=== PATIENT | female | born 1970 | race Caucasian/White ===

== ENCOUNTER 2017-01-06 08:51 | Day surgery (SDC) | payer OTHER ==
[~2017-01-06] VITALS: Ht 158.8 cm; Wt 77.4 kg
[2017-01-06] VITALS (14 sets, daily range): BP systolic 111–166; BP diastolic 8–108; PULSE 79–94; RESP 7–19; O2SAT 92–99
[2017-01-06] MEDS: Lactated Ringer's 1,000 ML IV SCH ×3 (05:00→10:28)
[~2017-01-06 08:51] MED LIST: ADV250INH IH; CALCIUM/MAG/VIT D PO; CeFAZolin Inj 2 GM in IV Premix 1 EACH IV ONE; DIPH25CA6 PO; FLUT9.9S NS; IRON 65 MG PO; LEVO25TA5 PO; SPIR25TA3 PO
[2017-01-06] MEDS ORDERED: Rocuronium 10 mg/mL 5 mL Inj ONE (08:52)
[2017-01-06] MEDS ORDERED: Propofol 10,000 mCg/mL 20 mL Inj ONE (08:52)
[2017-01-06] MEDS ORDERED: Ondansetron 2 mg/mL 2 mL Inj ONE (08:52)
[2017-01-06] MEDS ORDERED: fentaNYL-PF 50 mCg/mL 2 mL Inj ONE (08:52)
[2017-01-06] MEDS ORDERED: Neostigmine 1 mg/mL 10 mL Inj ONE (08:52)
[2017-01-06] MEDS ORDERED: Ketamine 10 mg/mL 20 mL Inj ONE (08:52)
[2017-01-06] MEDS ORDERED: Dexamethasone 4 mg/mL Inj ONE (08:52)
[2017-01-06] MEDS ORDERED: Glycopyrrolate 0.2 MG/ML 1mL Inj ONE (08:52)
[2017-01-06] MEDS ORDERED: Lactated Ringer's 500 ML IV PRN (10:21)
[2017-01-06] MEDS ORDERED: Lactated Ringer's 1,000 ML IV SCH (10:21)
--- NOTE | 2017-01-06 10:21 | PCM.HPANE ---
Patient Data Surgeon Admitting Provider: Attending Provider:Barrington Jackson MD Primary Care Physician:Maryanne Stovall Other Provider:Gómez Tripathi Anesthesia Reason for Visit Left Breast Cancer, Right Nipple Bloody Discharge Ht/WT & BMI Height (Feet): 5 Height (Inches): 2.50 Weight (Kilograms): 77.4 Body Mass Index 30.00 Allergies Coded Allergies: Iodinated Contrast Media - Oral and (Verified Allergy, Severe, Rash, Itching,, 12/19/16) Had hives after CT scan, was told to pretreat in future. Past Anesthesia History Anesthesia History: Denies:: Abnormal Airway, Anesthesia Reactions, Difficult Intubation, Fam Anesthesia Reaction, Malignant Hyperthermia Diabetes History Hx Diabetes?: No MRSA MRSA: No Medications Hypertension Medication: No Home Meds Incl Beta Eva: No Reported Medications [Iron 65 Mg] No Conflict Check65 Mg PO DAILY 12/31/16 [Calcium/Mag/Vit D] No Conflict Check1 Tablet PO DAILY 12/31/16 Levothyroxine 25 Mcg [id number] Mcg PO DAILY Ref 0 12/19/16 Fluticasone/Salmeterol (Advair 250-50 Diskus)60 Puff/Inh Disk2 Puff IH BID Ref 0 12/08/16 Spironolactone 25 Mg Onywyl05 Mg PO BID Ref 0 12/08/16 Fluticasone Propionate (Flonase Allergy Relief)50 Mcg/Actuation [place].susp1 [place] EACH NOSTRIL DAILY 12/08/16 diphenhydrAMINE HCl (Benadryl)25 Mg [id number] Mg PO Q4-6H PRN PRN Ref 0 12/08/16 History History of ENT Problems?: Yes HEENT History: Denies:: Abnormal Airway Cataracts Difficult Intubation Dysphagia Glaucoma Hearing Problem Sinus Problem TMJ Denture Type: None Teeth Condition: Missing Teeth Other HEENT Pertinent History: hx missing teeth, Hx of Heart Problems?: Yes Cardiovascular History: Positive for:: Hypertension Denies:: AICD Abdominal Aortic Aneurism Cardiac Surgery Coronary Artery Disease Edema Heart Murmur Irregular Heartbeat Pacemaker Hx of Respiratory Problem?: Yes Respiratory History: Positive for:: Asthma (allergy or exercise induced - rarely) Use of Inhalers / NEBS Denies:: COPD Emphysema Oxygen Administration Pneumonia Tuberculosis Use of C-PAP Machine Hx Neurologic Problems?: Yes Neurological History: Positive for:: Headaches (only with gluten) Denies:: CVA Dizziness Multiple Sclerosis Parkinson's Disease Seizures TIA Hx of GI Problems?: No Hx of Problems?: No Genitourinary History: Denies:: Kidney Stones Urinary Tract Infection Female Hx: Positive for:: Problems with Breasts? (left breast ca current admission problem) Denies:: Currently Skin History: Denies:: History Skin Disorders? Pressure Ulcers Hx Musculoskeletal Problems?: No Musculoskeletal History: Denies:: Back Injury Fibromyalgia Joint Replacement Musculoskeletal Trauma Myasthenia Gravis Osteoarthritis Rheumatoid Arthritis Systemic Lupus Hx of Psycho/Social Problems?: No Hx Surgeries?: Yes (B/L BREAST BX, oral surgery) Hx Any Other Health Problems?: Yes Other History: Positive for:: Cancer (left breast ) Thyroid Disease (left thyroid nodule) Denies:: Endocrine Disease Hospitalization History Blood Transfusions: Positive for:: Accept Blood Products? Denies:: Blood Transfusions Hx Diabetes: No Hx Alcohol Use: YesAlcoholic Drinks Per Day: once weeklyHx Substance Use: No Smoking Status: Never Smoker Have You Smoked inLast 12 mo: No Stop/Bang Treated for Sleep Apnea?: No Do You Have a CPAP Machine?: No S-Snoring: Do You Snore Loudly: No T-Tired: feel tired, fatigued: No O-Obsered: Observed not breath: No P-Blood Pressure: treated: Yes B- Body Mass Index > 35 kg/m2: No A- Age over 50: No N- Neck Large Circumference: No G- Gender Male: No JUAN C Total Score: 1 JUAN C Risk Assessment: Low Risk, <3 Yes Risk Assessment Category Category 1A: Patient has history of documented sleep apnea, and HAS NOT received any narcotic, sedative or anesthesia administration during this stay. Category 1B: Patient has history of documented sleep apnea, and HAS received any narcotic , sedative or anesthesia administration during this stay Category 2: Patient has SUSPECTED Obstructive Sleep Apnea, and HAS received any narcotic , sedative or anesthesia administration during this stay. Category 3: Patient has SUSPECTED Obstructive Sleep Apnea and HAS NOT received narcotic, sedative or anesthesia administration during this stay. Category 4: Outpatient in Procedural Areas with known sleep apnea or who screen positive for High Risk via the STOP/BANG questionnaire. Exam Exam Vital Signs Vital Signs Date Time Temp Pulse Resp B/P Pulse Ox O2 Delivery O2 Flow Rate FiO2 01/06/17 09:30 36.2 88 18 166/108 99 Room Air General Appearance: Alert, Oriented X3, Cooperative, No Acute Distress HEENT/AIRWAY: MP 2 Lungs: Clear to Auscultation, Normal Air Movement Heart: Exam Unremarkable, Regular Rate/Rhythm, No Murmurs/Rubs/Gallops Meds/Labs/Diagnostics Admission Meds Current Medications Lactated Ringer's (Lr) 1,000 ml @ 120 mls/hr Q8H20M IV Last administered on t 09:04; Start 01/06/17 at 05:00; Stop 01/06/17 at 13:19 Plan Impression Patient chart reviewed, patient interviewed and anesthestic plan with risks, benefits, and alternatives discussed, and informed consent obtained. ASA Physical Status: ASA2 Mod Systemic Disease Anesthetic Plan: GA Bene/Risks/Altern/Consents: Yes HP Complete Prior to Induction: Yes Remy Pacheco MD Jan 06, 2017 10:21
[2017-01-06] MEDS ORDERED: Dexamethasone 4 mg/mL Inj IVPUSH PRN (10:25)
[2017-01-06] MEDS ORDERED: EPHEDrine Sulfate 50 mg/mL Inj IVPUSH PRN (10:25)
[2017-01-06] MEDS ORDERED: Ondansetron 2 mg/mL 2 mL Inj IVPUSH PRN ×2 (10:25→14:45)
[2017-01-06] MEDS ORDERED: Phenylephrine 10,000 mCg/mL Inj IVPUSH PRN (10:25)
[2017-01-06] MEDS ORDERED: fentaNYL-PF 50 mCg/mL 2 mL Inj IVPUSH PRN (10:25)
[2017-01-06] MEDS ORDERED: MetoCLOpramide 5 mg/mL 2 mL Inj IVPUSH PRN ×2 (10:25→14:45)
[2017-01-06] MEDS ORDERED: Bupivacaine-MPF 0.5% W/EPI 30 mL Inj INFILTRATE ONE (11:10)
[2017-01-06] MEDS ORDERED: Lactated Ringer's 1,000 ML IV ONE (11:46)
[2017-01-06] MEDS ORDERED: HepLOK Flush 100 unit/mL 5 mL Inj IVFLUSH ONE (14:20)
[2017-01-06] MEDS ORDERED: Morphine PCA 1 mg/mL 30 mL Inj IV PRN (14:45)
[2017-01-06] MEDS ORDERED: Acetaminophen IV 1,000 MG in IV Premix 1 EACH IV PRN (14:45)
--- NOTE | 2017-01-06 14:55 | PCM.SURGOP ---
Surgical Operative Report Date of Service: Jan 06, 2017 Pre Operative Diagnosis Left breast cancer, bloody right nipple discharge Post Operative Diagnosis Same Procedure: Bilateral skin sparing mastectomy, left axillary lymph node dissection with reverse axillary lymphatic mapping, tunneled left subclavian central venous catheter with power port, intraoperative fluoroscopy with interpretation Surgeon and Salesforce Specialist: Surgeon: Barrington Jackson MD Assistants: Erma Daigle PA-C Indication for Procedure 46-year-old woman who was diagnosed with clinical T1 N1 left breast invasive ductal carcinoma, ER/ND positive, HER-2 negative, but who had originally presented with bloody right nipple discharge. Her right breast biopsy showed fibrocystic change, but the biopsy was thought to possibly be discordant with her radiographic findings. Because of the biologic subtype of her cancer, she was thought to not be a good candidate for neoadjuvant chemotherapy. After discussion of risks and benefits, she agreed to proceed with bilateral skin sparing mastectomy with left axillary lymph node dissection and reverse lymphatic mapping, Port-A-Cath placement. She plans to pursue delayed breast reconstruction after her adjuvant treatment. Findings: There were several abnormal left axillary lymph nodes by palpation. There were no visualized blue lymphatics. Procedure Details After smooth induction of general endotracheal anesthesia, she was placed in the supine position with both arms out, and was prepped and draped in wide sterile fashion. A procedural pause was performed according to the SCOAP checklist, and all were found to be in agreement. A Wood catheter was placed. An elliptical right breast circumareolar incision was made, oriented transversely. Skin flaps were raised superiorly and inferiorly. Circumferential dissection was carried out with electrocautery as the skin and subcutaneous tissue was elevated off the underlying breast capsule. Margins of dissection were the right clavicle, the midline, the right inframammary crease, and the right anterior axillary line. The right axillary tail was divided. The right breast was then elevated off the underlying chest wall, and pectoralis fascia was resected en bloc. The right breast was oriented with suture, and sent for permanent pathology. A single 19 [place] round SERENA drain was brought out through a separate incision laterally, and secured to the skin with a 2-0 nylon suture. At this point, a similar elliptical left breast circumareolar incision was made. It was slightly longer, in order to accommodate her prior needle biopsy sites into the lateral aspect of the incision. Skin flaps were raised superiorly and inferiorly. Circumferential dissection was carried out with electrocautery as the skin subcutaneous tissue was elevated off the underlying breast capsule. Margins of dissection were the left clavicle, the midline, the left inframammary crease, and the left anterior axillary line. Medial and lateral perforating vessels were controlled with medium hemoclips. The left breast was then elevated off the underlying chest wall, and pectoralis fascia was resected en bloc. The left breast was oriented with suture, and sent for permanent pathology. 1 mL of methylene blue was then injected into the left medial arm into the subdermal tissue for reverse lymphatic mapping of the left axilla. Left axillary lymph node dissection was then performed through the same incision. The left axillary vein was identified and skeletonized. There was a single venous branch into the axilla which was ligated with 3-0 silk suture and divided. The left lung thoracic and thoracodorsal nerves were identified and preserved. A complete level I and 2 lymph node dissection was performed. There were several abnormal lymph nodes by palpation. There were no visualized blue lymphatics during the dissection. All loose areolar node bearing tissue was swept out of the subpectoral space along with the eldon packet. Dissection was performed using the LigaSure device. Once eldon dissection was completed, the tissue is sent for permanent pathology, labeled as left axillary node dissection. On the left side, 2 separate SERENA drains were placed. A 19 round SERENA drain was placed into the mastectomy bed. A 15 round SERENA drain was placed into the left axilla. Both were secured to the skin with 2-0 nylon suture. Both skin incisions were then closed with interrupted deep dermal 3-0 Vicryl sutures, and running 4-0 Vicryl subcuticular suture. Dermabond was applied to both incisions as a dressing. She was then placed with the left arm tucked for Port-A-Cath placement, reprepped and draped separately. She was placed in Trendelenburg position. On the first pass, the left subclavian artery was punctured, but not dilated. The needle was withdrawn and pressure was held for several minutes. There was no hematoma. The left subclavian vein was accessed with a finder needle on the second pass, and the 0.035 inch wire was passed into the vena cava. It was confirmed with fluoroscopy. A subcutaneous pocket was created on the left upper chest wall using electrocautery, which connected to the mastectomy bed. The port reservoir was secured to the fascia with interrupted 3-0 Vicryl sutures. The catheter was connected to the tunneler, and tunneled under the subcutaneous tissue to the venipuncture site. The introducer sheath and dilator was passed over the wire under fluoroscopic guidance. The catheter was then passed through the tear-away sheath into the vena cava. The sheath was removed. The catheter was then pulled back under fluoroscopic guidance until the tip was positioned at the cavoatrial junction. The catheter was cut to size , and connected to the port reservoir. The port was accessed using a Schmitt needle, which aspirated and flushed easily. The port was then flushed with the final heparin flush, consisting of 100 units per mL, a total of 4 mL. A final fluoroscopic image confirmed that the port was in good position with no kinks, and there was no evidence of pneumothorax. The incision was closed with a running 4-0 Monocryl subcuticular stitch. Dermabond was applied to those incisions as a dressing. The Wood catheter was removed prior to emergence from anesthesia. At the end of the case all needle and sponge counts were correct 2. The patient was awakened from anesthesia without difficulty, and taken to the recovery room in satisfactory condition, having tolerated the procedure well. Complications There were no periprocedural complications identified. Surgical Specimen Removed: Yes Specimen sent to Pathology: Yes Surgical Specimen description: Right breast. Left breast. Left axillary dissection. Anesthetic Plan: GA Grafts, Implants: Implants-See Implant Record Output, Estimated Blood Loss: 30 Blood Administration during dale: No Drains: SERENA Drain #1, SERENA Drain #2, SERENA Drain #3 Catheters: Urethral 2 Way Wood copies to: Riky Felipe MD; Maryanne Stovall Joshua D MD Jan 06, 2017 14:55
[2017-01-06] MEDS: HYDROmorphone 1 mg/mL Inj IVPUSH PRN ×2 (15:06→15:43)
[2017-01-06] MEDS ORDERED: diphenhydrAMINE 25 mg Capsule PO PRN (16:00)
[2017-01-06] MEDS: Dextrose 5% Lactated Ringer's 1,000 ML IV SCH (16:00)
--- NOTE | 2017-01-06 16:03 | PCM.ANEP1 ---
Post Anesthesia PACU Phase 1 Assessment Vital Signs Vital Signs Date Time Temp Pulse Resp B/P Pulse Ox O2 Delivery O2 Flow Rate FiO2 01/06/17 15:56 36.8 94 17 147/76 96 Room Air 01/06/17 15:39 37 87 13 125/68 97 Nasal Cannula 2 01/06/17 15:30 84 11 125/78 96 Nasal Cannula 2 01/06/17 15:24 89 15 129/81 96 Nasal Cannula 2 01/06/17 15:16 84 7 111/72 96 Nasal Cannula 2 01/06/17 15:10 83 17 111/70 95 Nasal Cannula 2 01/06/17 15:07 79 14 115/72 94 Nasal Cannula 2 01/06/17 14:56 91 19 126/80 95 Nasal Cannula 2 01/06/17 14:50 89 17 131/89 92 Room Air 01/06/17 14:47 85 14 137/91 97 Simple Mask 10 01/06/17 14:40 90 16 142/92 96 Simple Mask 10 01/06/17 14:38 36.5 85 18 145/97 97 Simple Mask 10 01/06/17 09:30 36.2 88 18 166/108 99 Room Air Anesthetic Administered: GA Level of Alertness: Sleepy, easy to arouse TEAGUE's with Equal Strength: Yes Pain: Yes Pain Scale Score: 6 Nausea or Vomiting: No CV Function & Hydration Stable: Yes Airway Device: airway patent Lungs: Clear to Auscultation, Normal Air Movement Dermatome Level: Full Sensation PACU Phase 2 Assessment Complications: No Follow up Care: No Patient Instructions Provided: N/A Remy Pacheco MD Jan 06, 2017 16:02
--- NOTE | 2017-01-06 19:08 | NUR ---
Post op Pt arrived on [facility] at 1545, pain well controlled, started on SPECTRAL SCIENTIST Morphine has used one dose since arrival no complaints of nausea, 3 SERENA drains, wounds closed with derma garcia, no ngo, will call when she needs to void, see post op assessment, care continued.
[2017-01-06] MEDS: Fluticasone-Salmererol 250-50 Inhaler INHALATION SCH (20:22)
[2017-01-07 00:01] VITALS: BP 146/93; PULSE 81; RESP 17; O2SAT 95
[2017-01-07 01:00] VITALS: RESP 12; O2SAT 95
[2017-01-07 01:15] VITALS: RESP 12; O2SAT 95
--- NOTE | 2017-01-07 01:30 | NUR ---
Activity On initial assessment, patient stated pain 2/10 on pain scale. Patient ambulated well to with nurse and spouse assist. Right breast incision swollen at lateral side. Dr. Jackson aware. SERENA drains intact and draining. VSS. Call light within reach. Care continues.
[2017-01-07] MEDS: Dextrose 5% Lactated Ringer's 1,000 ML IV SCH (04:07)
[2017-01-07 04:10] VITALS: BP 149/85; PULSE 71; RESP 17; O2SAT 96
[2017-01-07 06:36] LABS: Mean Corpuscular Hemoglobin 26.4 pg (27.0-35.0); Mean Corpuscular Volume 82.4 fL (81-100)
[2017-01-07 06:37] VITALS: RESP 12; O2SAT 97
[2017-01-07] MEDS ORDERED: HYDROcodone-APAP 5-325 mg Tablet PO PRN (07:00)
--- NOTE | 2017-01-07 07:00 | PCM.DISURG ---
Surgical Discharge Instruction Date of Service Jan 07, 2017 Dates of Hospitalization Date of Hospital Admission Providers Admitting Physician: Primary Care Physician: Maryanne Stovall Attending Physician: Barrington Jackson MD Discharge Diagnosis Discharge Diagnosis left breast cancer, bloody right nipple discharge Post Operative diagnosis Same Diet Discharge Diet: No restrictions Activity Discharge Activity-General: Activity as pain allows, Other (Range of motion exercises per PT) Dressing and Incisional Care Dressing Instructions: Dermabond will peel off gradually Hygiene: May shower Additional Instructions Discharge Instructions Empty SERENA drains and record output daily, or more frequently as needed. Call the surgery clinic when drain output is less than 30mL in 24 hours for 2 consecutive days. Follow Up Plan Follow Up Plan with Dr. Jackson in 7-10 days Call your provider for: Fever (over 101.5F), Discharge @ incision, pus discharge Barrington Jackson MD Jan 07, 2017 07:00
--- NOTE | 2017-01-07 08:05 | PROG NOTE ---
[address] [address] PROGRESS NOTE PATIENT: SAM GARRIDO : 1970 MR#: [id number] ADMIT: 01/06/2017 JOB ID: [id number] DATE: 01/07/2017 SUBJECTIVE: The patient is seen in followup. She had a good night with minimal pain. She rates her pain as a 2/10 right now. She has no nausea. She is tolerating her diet. OBJECTIVE: Temperature 36.7, pulse 71, blood pressure 149/85, saturation 96% on room air. General: She is sitting up in bed, in no acute distress. Chest is clear. Heart: Regular rate and rhythm. No murmurs. Breasts: Bilateral skin-sparing mastectomy incisions are well approximated. There is some induration and ecchymosis on the lateral aspects on both sides, but no evidence of significant hematoma. The skin flaps are well perfused. SERENA drains have serosanguineous drainage. Drain output overnight was 60, 45, 55 cc, respectively. LABORATORIES: White blood cell count 13.4, hematocrit 35.6, platelets 369. Creatinine 0.77, glucose 130. ASSESSMENT/PLAN: A 46-year-old woman with T1 N1 left breast cancer and bloody right nipple discharge, postoperative day one, status post bilateral skin-sparing mastectomy, left axillary lymph node dissection with reverse lymphatic mapping, tunneled left subclavian Port-A-Cath placement. She is doing well clinically. She will be discharged to home today after SERENA drain teaching and physical therapy assessment. She will follow up in the surgery clinic when drain output is less than 30 cc in 24 hours for drain removal.
[2017-01-07] MEDS ORDERED: Fluticasone 0.05% 15 Spray/2 Gm 16 Gm Nasal Spray NASAL SCH ×2 (08:30→10:30)
[2017-01-07] MEDS: Fluticasone-Salmererol 250-50 Inhaler INHALATION SCH (09:58)
[2017-01-07] MEDS ORDERED: Fluticasone-Salmererol 250-50 Inhaler INHALATION SCH (10:30)
--- NOTE | 2017-01-07 15:46 | NUR ---
Discharge Pt DC home with via private vehicle at 1156. Belongings with pt. Pain has been minimal and pt has refused any medication after HAIR SPECIALIST DC'd. Dressings CDI. Teach-back demonstration after SERENA draining and stripping teaching was done. Both and pt able to manage drains and accurately measure output. Pt will follow up with PCP and Dr. Escobedo's.
--- NOTE | 2017-01-08 09:43 | PCM.DC.SUR ---
Discharge Summary Date of Service: Date of Hospital Admission: 01/06/2017 Date of Operation(s): 01/06/2017 Date of Discharge: Jan 07, 2017 at 11:57 Diagnosis at Time of Discharge Primary diagnoses: 1. Left breast moderately differentiated invasive ductal carcinoma, ER/MS positive, equivocal for HER-2 (2+), fish pending 2. Left bloody nipple discharge Other chronic conditions: 1. Hypothyroidism 2. Hyperlipidemia 3. Asthma 4. Depression 5. Meralgia paresthetica 6. Hypertension Problems: Operation 1. Bilateral skin sparing mastectomy 2. Left axillary lymph node dissection with reverse axillary lymphatic mapping 3. Tunneled left subclavian central venous catheter with power port, intraoperative fluoroscopy with interpretation Brief History and Physical: The patient is a 46-year-old woman who was diagnosed with clinical T1 N1 left breast invasive ductal carcinoma, ER/MS positive, HER-2 negative, but who had originally presented with bloody right nipple discharge. Her right breast biopsy showed fibrocystic change, but the biopsy was thought to possibly be discordant with her radiographic findings. Because of the biologic subtype of her cancer, she was thought to not be a good candidate for neoadjuvant chemotherapy. She plans to pursue delayed breast reconstruction after her adjuvant treatment. Consultants: None Hospital Course: The patient was admitted and underwent the above-mentioned operations without complication. She was stable for discharge the following morning. At the time of discharge her flaps were viable and pain was well controlled on oral analgesic. Pathology: Pending Disposition: The patient was discharged to home on her first postsurgical day. Follow-up Plan: She will follow-up in the office with Dr. Jackson in 7-10 days. ([Calcium/Mag/Vit D]) 1 TABLET PO DAILY (Reported) ([Iron 65 Mg]) 65 MG PO DAILY (Reported) Fluticasone Propionate (Flonase Allergy Relief) 50 Mcg/Actuation [place].susp 1 SPRAY NS EACH NOSTRIL DAILY (Reported) Fluticasone/Salmeterol (Advair 250-50 Diskus) 60 Puff/Inh Disk 2 PUFF IH BID ( Reported) Levothyroxine (Levothyroxine) 25 Mcg Tablet 25 MCG PO DAILY (Reported) Spironolactone (Spironolactone) 25 Mg Tablet 25 MG PO BID (Reported) diphenhydrAMINE HCl (Benadryl) 25 Mg Capsule 25-50 MG PO Q4-6H PRN PRN PRN ( Reported) copies to: Riky Felipe MD; Maryanne Stovall Fred H PA-C Jan 08, 2017 09:43
--- NOTE | 2017-01-09 10:36 | PATH ---
SURGICAL PATHOLOGY Attending Physician:Arabella Yeung CASE STATUS: Signed Out * Amended * PATIENT NAME: SAM GARRIDO PID: [id number] : 1970 DATE COLLECTED:01/06/2017 00:00 SPECIMEN: 1: Breast, Simple Mastectomy (w/o lymph nodes) 2: Breast, Simple Mastectomy (w/o lymph nodes) 3: Lymph Nodes, Regional Resection CLINICAL HISTORY: LEFT BREAST CANCER, RIGHT BREAST BLOODY NIPPLE DISCHARGE 1). RIGHT BREAST, SHORT STITCH SUPERIOR, LONG LATERAL, OUT 11:39 TIF 11:50 2). LEFT BREAST, SHORT STITCH SUPERIOR, LONG LATERAL OUT 12:30 TIF 12:35 3). LEFT AXILLARY DISSECTION OUT 13:20 TIF 13:35 FINAL DIAGNOSIS: 1.RIGHT BREAST, SIMPLE MASTECTOMY SPECIMEN: SUBAREOLAR FLORID ADENOSIS WITH ASSOCIATED INTRADUCTAL PAPILLARY HYPERPLASIA, NEGATIVE FOR ATYPIA. 2.LEFT BREAST, SIMPLE MASTECTOMY SPECIMEN: INVASIVE BREAST CARCINOMA (SEE CAP CANCER CASE SUMMARY BELOW). 3.LEFT AXILLARY DISSECTION: 1 OF 19 LYMPH NODES POSITIVE FOR METASTATIC TUMOR (SEE CAP CANCER CASE SUMMARY BELOW). 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) HISTOLOGIC GRADE: YINKA HISTOLOGIC SCORE 7 OF 9 (LEFT LOWER QUADRANT TUMOR) AND 5-6 OF 9 (SUBAREOLAR TUMOR) Glandular/Tubular differentiation: Score 2 of 3 (both tumors) Nuclear Pleomorphism: Score 3 of 3 (left lower quadrant tumor) and 2-3 of 3 (subareolar tumor) Mitotic Rate: Score 2 of 3 (left lower quadrant tumor) and 1 of 3 (subareolar tumor) Overall Grade: Grade Intermediate, grade 2 of 3 (both tumors) TUMOR FOCALITY: TWO SEPARATE TUMORS (LEFT LOWER QUADRANT AND SUBAREOLAR AREA) 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 MULTIPLE SMALL MICROSCOPIC FOCI IN SUBAREOLAR TUMOR Architectural patterns: SOLID AND PAPILLARY (LEFT LOWER QUADRANT TUMOR) AND SOLID (SUBAREOLAR TUMOR) Nuclear grade: Grade HIGH (3 OF 3 IN LEFT LOWER QUADRANT TUMOR) AND INTERMEDIATE (2 OF 3 IN SUBAREOLAR TUMOR) Necrosis: ABSENT IN BOTH TUMORS MACROSCOPIC AND MICROSCOPIC EXTENT OF TUMOR SKIN: NEGATIVE FOR TUMOR NIPPLE: DCIS PRESENT IN SINGLE SUBAREOLAR DUCT. SUBAREOLAR INVASIVE CARCINOMA IS 0.5 CM DEEP TO THE NIPPLE WITH NO EVIDENCE OF PAGETOID SPREAD TO THE NIPPLE SKIN SKELETAL MUSCLE: ABSENT MARGINS INVASIVE CARCINOMA (LEFT LOWER QUADRANT TUMOR): Anterior: 0.5 CM Posterior: 5.3 CM Superior: 15.0 CM Inferior: 1.5 CM Medial: 11.8 CM Lateral: 5.2 CM INVASIVE CARCINOMA (SUBAREOLAR TUMOR): Anterior: 0.5 CM BELOW THE NIPPLE AND 0.9 CM BELOW THE NIPPLE SKIN ALL OTHER MARGINS GREATER THAN 1.0 CM DUCTAL CARCINOMA IN SITU: Anterior: 1.5 CM BENEATH THE NIPPLE SKIN (LEFT LOWER QUADRANT TUMOR). ALL OTHER MARGINS GREATER THAN 1.0 CM ALL MARGINS GREATER THAN 1.0 CM IN SUBAREOLAR TUMOR LYMPH NODES Total number of lymph nodes examined: 19 Number of sentinel lymph nodes examined: 0 Lymph Node Involvement: Number of lymph nodes with macrometastases: 1 Extranodal Extension: ABSENT Her2 on positive node is negative by immunohistochemistry LYMPH-VASCULAR INVASION: NEGATIVE FOR BLOOD VESSEL INVASION BY IMMUNOHISTOCHEMISTRY. FOCALLY POSITIVE FOR LYMPHATIC CHANNEL INVASION BY IMMUNOHISTOCHEMISTRY IN THE LEFT LOWER QUADRANT TUMOR. SUBAREOLAR TUMOR NEGATIVE FOR LYMPH-VASCULAR INVASION. PATHOLOGIC STAGING: AJCC, 7th ed., 2010 PRIMARY TUMOR: pT1c REGIONAL LYMPH NODES: pN1a ANCILLARY STUDIES: Biomarkers Performed Previously on Case: LEFT LOWER QUADRANT TUMOR: BIOMARKERS PERFORMED ON PREVIOUS BIOPSY (INFORMATION OBTAINED FROM SURGICAL OPERATIVE NOTE). Estrogen Receptor (ER) Status: POSITIVE Progesterone Receptor (PgR) Status: POSITIVE HER2 (by immunohistochemistry): NEGATIVE ANCILLARY STUDIES: SUBAREOLAR TUMOR: HORMONE RECEPTORS ORDERED AND WILL BE REPORTED BY ADDENDUM. : ORIGINAL CAP CANCER CASE SUMMARY (SEE CORRECTED SUMMARY ABOVE). CAP CANCER CASE SUMMARY INVASIVE CARCINOMA OF THE BREAST: PROCEDURE: SIMPLE MASTECTOMY LYMPH NODE SAMPLING: AXILLARY DISSECTION (PART 3) SPECIMEN LATERALITY: LEFT TUMOR SIZE: 1.5 X 1.3 X 1.0 CM HISTOLOGIC TYPE: INFILTRATING DUCTAL CARCINOMA HISTOLOGIC GRADE: YINKA HISTOLOGIC SCORE 7 OF 9 Glandular/Tubular differentiation: Score 2 OF 3 Nuclear Pleomorphism: Score 3 OF 3 Mitotic Rate: Score 2 OF 3 Overall Grade: Grade INTERMEDIATE (GRADE 2 OF 3) TUMOR FOCALITY: SINGLE FOCUS DUCTAL CARCINOMA IN SITU: Size (Extent) of DCIS: LARGEST FOCUS MEASURES 1.0 CM Architectural patterns: SOLID AND PAPILLARY Nuclear grade: Grade HIGH (3 OF 3) Necrosis: ABSENT MACROSCOPIC AND MICROSCOPIC EXTENT OF TUMOR SKIN: NEGATIVE FOR TUMOR NIPPLE: NEGATIVE FOR TUMOR (DCIS PRESENT IN SINGLE SUBAREOLAR DUCT) SKELETAL MUSCLE: ABSENT MARGINS INVASIVE CARCINOMA: Anterior: 0.5 CM Posterior: 5.3 CM Superior: 15.0 CM Inferior: 1.5 CM Medial: 11.8 CM Lateral: 5.2 CM DUCTAL CARCINOMA IN SITU: Anterior: 1.5 CM BENEATH THE NIPPLE SKIN ALL OTHER MARGINS GREATER THAN 1.0 CM LYMPH NODES Total number of lymph nodes examined: 19 Number of sentinel lymph nodes examined: 0 Lymph Node Involvement: Number of lymph nodes with macrometastases: 1 Number of lymph nodes with micrometastases: 0 Extranodal Extension: ABSENT LYMPH-VASCULAR INVASION: NEGATIVE FOR BLOOD VESSEL INVASION BY IMMUNOHISTOCHEMISTRY FOCALLY POSITIVE FOR LYMPHATIC CHANNEL INVASION BY IMMUNOHISTOCHEMISTRY PATHOLOGIC STAGING: AJCC, 7th ed., 2010 PRIMARY TUMOR: pT1c REGIONAL LYMPH NODES: pN1a ANCILLARY STUDIES: BIOMARKERS PERFORMED ON PREVIOUS BIOPSY (INFORMATION OBTAINED FROM SURGICAL OPERATIVE NOTE) Estrogen Receptor (ER) Status: POSITIVE Progesterone Receptor (PgR) Status: POSITIVE HER2 (by immunohistochemistry): NEGATIVE NOTE: AMENDMENT Discussions with the surgeon of record indicates that the left mastectomy specimen contained two tumors by radiographic imaging and also by needle biopsy. Since only one tumor (lower outer quadrant) was identified initially, the specimen is re-examined, and a second tumor is found in the subareolar region. This second tumor is an infiltrating ductal carcinoma. Because of this additional finding, the CAP cancer case summary for this case is redone in a corrected fashion to include this second tumor. The results of this corrected information are discussed with Dr. Barrington Jackson at 0900 on 01/15/17 and also with oncologist Dr. Cat at 0920 on 01/15/17. GROSS DESCRIPTION: The specimens are received in formalin, labeled with the patient's name, and sublabeled as the following: (1) right breast; (2) left breast; (3) left axillary dissection. (1) The specimen consists of a right breast (5.0 cm AP, 18.5 cm SI, 16.5 cm ML) partially covered by an ellipse of skin (3.6 cm SI, 7.3 cm ML) with nipple/areola complex (3.1 x 2.5 cm). The axillary tail is absent. The specimen is oriented with 2 black sutures (short-superior, long-lateral). The breast tissue is fibrofatty with no nodules, masses or lesions identified. The skin is pale salcedo-white and unremarkable. The nipple/areola complex is pink, focally red and firm. Ink code: purple-anterior; yellow-posterior; black-superior; orange-inferior; green-medial; blue-lateral. Section code: (1A) nipple; (1B) skin; (1C, 1D) upper outer quadrant; (1E, 1F) lower outer quadrant; (1G, 1H) upper inner quadrant; (1I, 1J) lower inner quadrant; (1K, 1L) tissue directly deep to nipple. (2) The specimen consists of a left breast (4.5 cm AP, 18.0 cm SI, 18.5 cm ML) partially covered by an ellipse of skin (4.0 cm SI, 9.0 cm ML) with nipple/areola complex (2.7 x 2.5 cm). The axillary tail is absent. The specimen is oriented with 2 black sutures (short-superior, long-lateral). The specimen is serially sectioned ML into 40 slices with the medial and lateral resection margins slices #1 and #40 respectively. The breast tissue is fatty and contains a kitchen white solid firm irregular mass (1.5 x 1.3 x 1.0 cm) within slices #26-#30. The mass is located in the lower outer quadrant at approximately 7:00 to 8:00. The mass is 0.5 cm from the anterior, 5.3 cm from the posterior, 15.0 cm from the superior, 1.5 cm from the inferior, 11.8 cm from the medial, and 5.2 cm on the lateral resection margins. No other nodules, masses or lesions are identified. The nipple/areola complex is pink, focally red and firm. Ink code: purple-anterior; yellow-posterior; black-superior; orange-inferior; green-medial; blue-lateral. Section code: (2A) nipple; (2B) skin; (2C) medial resection margin, perpendicularly sectioned, circulation sales representative; (2D) slice #23, circulation sales representative; (2E) slice #24, circulation sales representative; (2F) slice #25, tissue adjacent to mass, circulation sales representative; (2G) slice #26, circulation sales representative; (2H) slice #27, circulation sales representative; (2I) slice #28, circulation sales representative; (2J) slice #29, circulation sales representative; (2K) slice #30, circulation sales representative; (2L) slice #31, tissue adjacent to mass, circulation sales representative; (2M) superior resection margin, circulation sales representative; (2N) lateral resection margin, perpendicularly sectioned, circulation sales representative. (3) The specimen consists of a piece of adipose tissue (13.5 x 9.8 x 2.7 cm) contain multiple possible lymph nodes (0.1 x 0.1 x 0.1 cm-3.5 x 2.2 x 1.3 cm). Section code: (3A-3F) multiple intact lymph nodes; (3G) one lymph node, bisected; (3H-3J) one lymph node, serially sectioned; (3K-3 Al) one lymph node, serially sectioned; (3M-3N) one lymph node, serially sectioned; (3O-3P) largest lymph node, serially sectioned, circulation sales representative. Note: Approximate total fixation time in formalin for are all specimens-33 hours and 30 minutes using a collection date of January 06, 2017 weeks times in the fixative of 5784-1933. 01/07/17 JM MICRO DESCRIPTION: Sections from part 1 are from the right breast. In the sections from the nipple there is a 1.0 cm area immediately beneath the nipple consisting of florid adenosis with associated intraductal papillary hyperplasia. The intraductal hyperplasia involves large ducts just beneath the nipple. There is no evidence for malignancy or significant atypia. The remaining sections from the breast reveal no evidence of malignancy or significant atypia. Sections from part 2 are from the left breast. The grossly-described mass is an infiltrating ductal carcinoma. The malignant cells are infiltrating in nests and cords. Tubular differentiation is present and is considered moderate. The nuclear grade is high and the mitotic rate is intermediate. This equates to a Yinka score of 7 of 9 which indicates that the tumor is of intermediate grade (2 out of 3). Shrinkage artifact is quite prominent in some areas. For this reason, in an attempt to ascertain whether or not this represents vascular and/or lymphatic channel invasion, immunohistochemistry is performed. Immunohistochemistry results: CD31: Performed on two blocks, and is essentially negative with no evidence of true vascular channel invasion. D2-40: Performed on two blocks, with one focus showing malignant cells present within a lymphatic channel. Duct carcinoma in situ is present in several areas and is both solid and papillary in configuration. The DCIS is of high nuclear grade with no evidence of true necrosis. The largest single focus of DCIS measures 1.0 cm. A small focus of DCIS is noted in a large subareolar duct; however, there is no evidence of Paget' s disease in the overlying nipple skin. There is no evidence of skin invasion. The invasive tumor is present 0.5 cm from the anterior margin. All other margins are greater than 1.0 cm. Sections from part 3 are from lymph nodes from a left axillary dissection. A total of 19 lymph nodes are identified, and the largest node is positive for metastatic carcinoma, which essentially replaces the lymph node (2.0 cm). There is no evidence of extranodal extension by tumor. ICD-9 CODES: CPT CODES: 1: 14754 2: 17208, 06056, 41823, 71933, 82742, 67819, 29832 3: 46943, 70986 AMENDMENT(S): Amended: 01/15/2017 by Kemi Adams Reason:Amended Diagnosis Correct Cancer Summary Previous Signout Date: 01/09/2017 Electronically Signed Out Manjit Covarrubias MD [facility] Pathology [facility] [address], [place] [address] Technical component performed at [facility], [facility] [address], [place], [address]
== END 2017-01-07 11:57 | disposition home or self-care (01) ==
LOC: SAS 08:51 → OSC 15:51 → SAS 01-07 11:57
PROVIDERS: ATTEND Student in an Organized Health Care Education/Training Program
DX: C50.512 Malignant neoplasm of lower-outer quadrant of left female breast (principal); N64.52 Nipple discharge; I10 Essential (primary) hypertension; E78.5 Hyperlipidemia, unspecified; E03.9 Hypothyroidism, unspecified; J45.909 Unspecified asthma, uncomplicated; F32.9 Major depressive disorder, single episode, unspecified; G57.10 Meralgia paresthetica, unspecified lower limb; Z17.0 Estrogen receptor positive status [ER+]
CPT/HCPCS: 19303; 36415; 36561; 38745; 77001; 80048; 85027; C1788; J0690; J1170; J1642; J2270; J3010; J7120